=== PATIENT | female | born 1985 | race Caucasian/White ===

== ENCOUNTER 2024-03-03 12:51 | Emergency (ER) | payer MEDICAID ==
[~2024-03-03] VITALS: Ht 160 cm; Wt 68.2 kg
[~2024-03-03 12:51] MED LIST: CEPH-558 PO; ESOM20CA39 PO; METF-1211 PO
[2024-03-03 13:06] VITALS: BP 104/70; PULSE 82; RESP 16; TEMP 98.1
[2024-03-03] MEDS ORDERED: LAMO-24 PO (13:08)
[2024-03-03] MEDS ORDERED: QUET200T30 PO (13:08)
[2024-03-03 13:21] LABS: APPEARANCE,URINE CLEAR (CLEAR); BILIRUBIN,URINE NEGATIVE (NEGATIVE); COLOR,URINE YELLOW (YELLOW); GLUCOSE, URINE (UA) NEGATIVE (NEGATIVE); KETONES,URINE NEGATIVE (NEGATIVE); LEUKOCYTE ESTERASE ,URINE LARGE (NEGATIVE); NITRATE,URINE NEGATIVE (NEGATIVE); OCCULT BLOOD,URINE NEGATIVE (NEGATIVE); PH,URINE 5.5 (5.0-8.0); PROTEIN,URINE NEGATIVE (NEGATIVE); SPECIFIC GRAVITIY, URINE 1.025 (1.003-1.030); UROBILINOGEN,URINE <=1.0 mg/dL (<=1.0)
[2024-03-03 13:30] LABS: BACTERIA,URINE Moderate /HPF (None Seen); RBC,URINE None Seen /HPF (0-2); SQUAMOUS EPITHELIAL CELL,UR Moderate /LPF (None Seen)
[2024-03-03] MEDS ORDERED: CEPH-558 PO (14:17)
[2024-03-03] MEDS ORDERED: IBUP-1554 PO (14:17)
[2024-03-03] MEDS ORDERED: PHEN-674 PO (14:17)
[2024-03-03] MEDS: PHENAZOPYRIDINE HCL 100 MG TABLET PO ONE (14:36)
[2024-03-03] MEDS: IBUPROFEN 600 MG TABLET PO ONE (14:36)
[2024-03-03] MEDS: CEPHALEXIN MONOHYDRATE 500 MG CAPSULE PO ONE (14:36)
== END 2024-03-03 14:39 | disposition home or self-care (01) ==
LOC: EMS 13:12
DX: N39.0 Urinary tract infection, site not specified (principal); F41.9 Anxiety disorder, unspecified; F31.9 Bipolar disorder, unspecified; F17.210 Nicotine dependence, cigarettes, uncomplicated; F12.90 Cannabis use, unspecified, uncomplicated; Z90.49 Acquired absence of other specified parts of digestive tract; Z90.89 Acquired absence of other organs; Z88.0 Allergy status to penicillin; Z98.890 Other specified postprocedural states
CPT/HCPCS: 81001; 84703; 87086; 87186; 99284; Z7502; Z7610

== ENCOUNTER 2025-05-16 20:44 | Emergency (ER) | payer MEDICAID ==
[~2025-05-16] VITALS: Ht 160 cm; Wt 68.2 kg
[~2025-05-16 20:44] MED LIST changes: -ESOM20CA39 PO; +IBUP-1554 PO; +LAMO-24 PO; -METF-1211 PO; +PHEN-674 PO; +QUET200T30 PO
[2025-05-17] MEDS: KETOROLAC TROMETHAMINE 30 MG/ML VIAL IVP ONE (00:48)
[2025-05-17 01:57] VITALS: BP 118/63; PULSE 78; RESP 16; TEMP 98.3; O2SAT 90
== END 2025-05-17 02:06 | disposition home or self-care (01) ==
LOC: EMS 20:44
DX: S93.602A Unspecified sprain of left foot, initial encounter (principal); F41.9 Anxiety disorder, unspecified; F31.9 Bipolar disorder, unspecified; F12.90 Cannabis use, unspecified, uncomplicated; F17.210 Nicotine dependence, cigarettes, uncomplicated; Z88.8 Allergy status to other drugs, medicaments and biological substances; Z90.89 Acquired absence of other organs; Z90.49 Acquired absence of other specified parts of digestive tract; Z88.0 Allergy status to penicillin; Z79.899 Other long term (current) drug therapy; W19.XXXA Unspecified fall, initial encounter; Y93.41 Activity, dancing; Y92.89 Other specified places as the place of occurrence of the external cause; Y99.8 Other external cause status
CPT/HCPCS: 99283; 73630; 96374; J1885

== ENCOUNTER → 2025-08-10 | Emergency (ER) | payer MEDICAID ==
[~2025-08-10] VITALS: Ht 162.6 cm; Wt 56.8 kg
[2025-08-10 22:07] VITALS: BP 122/78; PULSE 76; RESP 18; TEMP 98.8; O2SAT 98
[2025-08-10 23:02] LABS: COVID AG,FIA SOURCE NASAL SWAB
[2025-08-10 23:07] LABS: APPEARANCE,URINE CLEAR (CLEAR); GLUCOSE, URINE (UA) NEGATIVE (NEGATIVE); LEUKOCYTE ESTERASE ,URINE NEGATIVE (NEGATIVE); NITRATE,URINE NEGATIVE (NEGATIVE); OCCULT BLOOD,URINE NEGATIVE (NEGATIVE); PH,URINE DRUG SCREEN 5.5 (5.0-8.0); SPECIFIC GRAVITIY, URINE 1.002 (1.003-1.030)
[2025-08-10 23:14] LABS: PLATELET COUNT (AUTO) 319 K/uL (150-450); RED BLOOD CELL COUNT(AUTO) 5.26 MIL/uL (4.00-5.20); RED CELL DISTRIBUTION WIDTH 13.2 % (11.5-14.5); WHITE BLOOD COUNT (AUTO) 9.0 K/uL (4.5-11.0)
[2025-08-10 23:14] LABS: AMPHET/METH SCREEN,URINE NEGATIVE (NEGATIVE); BARBITURATE SCREEN, URINE NEGATIVE (NEGATIVE); CANNABINOID SCREEN,URINE POSITIVE (NEGATIVE); COCAINE SCREEN,URINE NEGATIVE (NEGATIVE); METHADONE SCREEN, URINE NEGATIVE (NEGATIVE)
[2025-08-10 23:15] LABS: ALCOHOL, URINE DRUG SCREEN NEGATIVE (NEGATIVE)
[2025-08-10 23:23] LABS: SARS-COV2 (COVID) ANTIGEN,FIA Negative (Negative)
[2025-08-10 23:24] LABS: CALCIUM, TOTAL 8.0 mg/dL (8.8-10.5); CREATININE 0.77 mg/dL (0.60-1.30); GLOMERULAR FILTR. RATE CALC > 60 mL/min (>60); GLUCOSE,RANDOM 104 mg/dL (70-110); SODIUM SERUM 144 mmol/L (136-145); UREA NITROGEN, BLOOD 7 mg/dL (7-18)
== END | disposition still patient (30) ==
LOC: EMS 21:47
DX: F31.9 Bipolar disorder, unspecified (principal); F41.9 Anxiety disorder, unspecified; F17.210 Nicotine dependence, cigarettes, uncomplicated; F12.90 Cannabis use, unspecified, uncomplicated; Z88.0 Allergy status to penicillin; Z88.8 Allergy status to other drugs, medicaments and biological substances; Z90.49 Acquired absence of other specified parts of digestive tract; Z90.89 Acquired absence of other organs; Z79.899 Other long term (current) drug therapy; Z20.822 Contact with and (suspected) exposure to COVID-19
CPT/HCPCS: 99284; 87426; 80048; 81003; 85025; 36415; 80307; G0480